=== PATIENT | male | born 1950 | race Caucasian/White ===

== ENCOUNTER 2020-09-06 06:41 | Emergency (ER) | payer OTHER, MEDICARE ==
[~2020-09-06] VITALS: Ht 175.3 cm; Wt 97.5 kg
[~2020-09-06 06:41] MED LIST: PRED20 PO; VALA500 PO
[2020-09-06] MEDS ORDERED: NOVOLOG100 UNIT/2 (07:19)
[2020-09-06] MEDS ORDERED: INSUGL100V (07:19)
== END 2020-09-06 09:05 | disposition home or self-care (01) ==
LOC: ER 06:41
DX: S39.012A Strain of muscle, fascia and tendon of lower back, initial encounter (principal); W18.39XA Other fall on same level, initial encounter; E11.9 Type 2 diabetes mellitus without complications; G47.30 Sleep apnea, unspecified; Z88.8 Allergy status to other drugs, medicaments and biological substances; Z91.030 Bee allergy status; Z79.4 Long term (current) use of insulin
CPT/HCPCS: 72100; 99283-25

== ENCOUNTER 2021-06-27 23:16 | Emergency (ER) | payer OTHER ==
[~2021-06-27] VITALS: Ht 175.3 cm; Wt 108.9 kg
[~2021-06-27 23:16] MED LIST changes: +ACET500 PO; +ARTIFICIAL TEA1 EAC6 OP; +ARTIFICIAL TEAR15 M2 OP; +CYCL10 PO; +INSUGL100V; +NOVOLOG100 UNIT/2; +Nitrostat0.4 MG SL
[2021-06-27 23:45] LABS: BASOPHILS ABSOLUTE AUTO 0.08 K/mm3 (0.00-0.23); BASOPHILS PERCENT AUTO 1 % (0-2); EOSINOPHILS PERCENT AUTO 2 % (0-6); Hematocrit 47.9 % (37.0-53.0); Hemoglobin 16.4 g/dL (13.5-17.5); IMMATURE GRAN ABSOLUTE AUTO 0.03 K/mm3 (0.00-0.10); IMMATURE GRAN PERCENT AUTO 0 % (0-1); LYMPHOCYTES ABSOLUTE AUTO 3.99 K/mm3 (0.84-5.20); LYMPHOCYTES PERCENT AUTO 40 % (21-46); MONOCYTES ABSOLUTE AUTO 0.98 K/mm3 (0.16-1.47); MONOCYTES PERCENT AUTO 10 % (4-13); Mean Corpuscular HGB 30.3 pg (26.0-34.0); Mean Corpuscular HGB Conc 34.2 g/dL (31.5-36.5); Mean Corpuscular Volume 89 fL (80-100); Mean Platelet Volume 10.3 fL (9.1-12.4); NEUTROPHILS ABSOLUTE AUTO 4.67 K/mm3 (1.96-9.15); NEUTROPHILS PERCENT AUTO 47 % (41-73); Platelet Count 299 K/mm3 (150-400); RDW Coefficient Variation 13.5 % (11.7-14.2); RDW Standard Deviation 43.5 fL (35.1-46.3); Red Blood Cell Count 5.41 M/mm3 (4.30-5.90); White Blood Cell Count 9.95 K/mm3 (4.00-11.30)
[2021-06-28 00:04] LABS: Alanine Aminotransfer (ALT/SGP 37 U/L (12-78); Albumin, Blood 3.2 g/dL (3.4-5.0); Albumin/Globulin Ratio 0.8 (0.8-1.8); Alk Phos 79 U/L (50-136); Anion Gap 9 mmol/L (6-16); Aspartate Aminotrans (AST/SGOT 24 U/L (12-37); Bilirubin, Total 0.4 mg/dL (0.1-1.0); Blood Urea Nitrogen 12 mg/dL (8-24); Bun/Creatinine Ratio 15.5 (12.0-20.0); CO2, Blood 24 mmol/L (21-32); Chloride, Blood 104 mmol/L (98-108); Creatinine, Blood 0.77 mg/dL (0.60-1.20); Ethanol (Alcohol), Blood, Med <3 mg/dL; Globulin, Blood 4.1 g/dL (2.2-4.0); Glomerular Filtration Rate >60 (60-); Glucose, Blood 266 mg/dL (70-99); Potassium, Blood 4.2 mmol/L (3.5-5.5); Sodium, Blood 137 mmol/L (136-145); Total Protein, Blood 7.3 g/dL (6.4-8.2)
[2021-06-28] MEDS ORDERED: QUET25 PO (00:10)
[2021-06-28] MEDS ORDERED: ASPI325 PO (00:10)
[2021-06-28] MEDS ORDERED: EZET10 PO (00:15)
[2021-06-28] MEDS ORDERED: JARDIANCE10 MG PO (00:16)
[2021-06-28 00:59] LABS: International Normalized Ratio 0.97; Prothrombin Time Results 10.2 Sec (9.7-11.5)
== END 2021-06-28 04:13 | disposition home or self-care (01) ==
LOC: ER 23:16
PROVIDERS: Student in an Organized Health Care Education/Training Program
DX: H11.31 Conjunctival hemorrhage, right eye (principal); R51.9 Headache, unspecified; E11.9 Type 2 diabetes mellitus without complications; Z79.4 Long term (current) use of insulin; Z88.8 Allergy status to other drugs, medicaments and biological substances
CPT/HCPCS: 36415; 70450; 70481; 80053; 82947; 85025; 85610; 85651; 85730; 86140; 93005; 93010; 99284-25; G0480; Q9967

== ENCOUNTER 2021-07-05 05:37 | Day surgery (SDC) | payer OTHER ==
[~2021-07-05] VITALS: Ht 177.8 cm; Wt 97.0 kg
[~2021-07-05 05:37] MED LIST changes: +Aspir 8181 MG PO; +EZET10 PO; +JARDIANCE10 MG PO; +QUET25 PO; +VOLTAREN ARTHRI20 GM TOP; +Viagra100 MG PO
--- NOTE | 2021-07-05 09:38 | NUR ---
PATIENT RETURNS FROM THE [facility] WITH TR BAND TO THE RIGHT RADIAL WITH 10 ML OF AIR IN THE BAND, SITE CDI, NO HEMATOMA, NO BLEEDING NOTED. PATIENT IS S/P CORONARY ANGIOGRAM. WITH NO INTERVENTION REPORTED. MEDICAL MANAGEMENT PLANNED. PATIENT IS IN A RECLINER, PLACED ON THE MONITOR. SR/ST NOTED. BLOOD SHOT RIGHT PUPIL REPORTED UNCHANGED FROM PRE- OPERATIVE ASSESSMENT. VVS. CALL LIGHT IN REACH. BREAKFAST SERVED AND PATIENT FEEDING SELF.
--- NOTE | 2021-07-05 11:15 | NUR ---
BEGAN TAKING AIR OUT OF THE TR BAND AT 1100. NO BLEEDING NOTED AT THIS TIME. CONTINUE TO MONITOR.
--- NOTE | 2021-07-05 12:00 | NUR ---
TR BAND FLAT AND REMOVED. CLOTHE DOT PLACED AND WHITE BOARD REPLACED. TEACHING DONE AND DISCHARGE INSTRUCTIONS REVIEWED. SIGNATURES OBTAINED AND COPIES GIVEN. PIV REMOVED, CATH TIP INTACT AND PRESSURE DRESSING APPLIED. PATIENT UP AND DRESSED. ALL BELONGINGS GATHERED. PATEINT WHEELED OUT IN WHEELCHAIR TO MEET WITH CEMENT CONTRACTOR. DISCHARGED HOME.
== END 2021-07-05 12:30 | disposition home or self-care (01) ==
LOC: MHTC 05:37
DX: I25.10 Atherosclerotic heart disease of native coronary artery without angina pectoris (principal); I25.82 Chronic total occlusion of coronary artery; I25.2 Old myocardial infarction; E11.69 Type 2 diabetes mellitus with other specified complication; E78.5 Hyperlipidemia, unspecified; I77.810 Thoracic aortic ectasia; G47.33 Obstructive sleep apnea (adult) (pediatric); E66.01 Morbid (severe) obesity due to excess calories; Z68.30 Body mass index [BMI] 30.0-30.9, adult; Z82.49 Family history of ischemic heart disease and other diseases of the circulatory system; Z87.891 Personal history of nicotine dependence; Z79.4 Long term (current) use of insulin; Z88.8 Allergy status to other drugs, medicaments and biological substances; Z91.030 Bee allergy status
CPT/HCPCS: 76937; 85347; 93458; 93571; 93572; 99152; 99153; A9270; C1769; C1887; C1894; J1644; J2250; J3010; J7030; J7050; Q9967

== ENCOUNTER 2022-03-30 18:53 | Emergency (ER) | payer OTHER ==
[~2022-03-30] VITALS: Ht 177.8 cm; Wt 89.8 kg
[2022-03-30 19:46] LABS: BASOPHILS ABSOLUTE AUTO 0.05 K/mm3 (0.00-0.23); BASOPHILS PERCENT AUTO 1 % (0-2); EOSINOPHILS ABSOLUTE AUTO 0.12 K/mm3 (0.00-0.68); EOSINOPHILS PERCENT AUTO 1 % (0-6); Hematocrit 48.2 % (37.0-53.0); Hemoglobin 16.4 g/dL (13.5-17.5); IMMATURE GRAN ABSOLUTE AUTO 0.02 K/mm3 (0.00-0.10); IMMATURE GRAN PERCENT AUTO 0 % (0-1); LYMPHOCYTES ABSOLUTE AUTO 3.01 K/mm3 (0.84-5.20); LYMPHOCYTES PERCENT AUTO 32 % (21-46); MONOCYTES ABSOLUTE AUTO 1.02 K/mm3 (0.16-1.47); MONOCYTES PERCENT AUTO 11 % (4-13); Mean Corpuscular HGB 30.5 pg (26.0-34.0); Mean Corpuscular Volume 90 fL (80-100); Mean Platelet Volume 10.4 fL (9.1-12.4); NEUTROPHILS ABSOLUTE AUTO 5.34 K/mm3 (1.96-9.15); NEUTROPHILS PERCENT AUTO 56 % (41-73); Platelet Count 256 K/mm3 (150-400); RDW Coefficient Variation 12.5 % (11.7-14.2); RDW Standard Deviation 41.1 fL (35.1-46.3); Red Blood Cell Count 5.38 M/mm3 (4.30-5.90); White Blood Cell Count 9.56 K/mm3 (4.00-11.30)
[2022-03-30 20:05] LABS: Albumin, Blood 3.6 g/dL (3.4-5.0); Albumin/Globulin Ratio 0.9 (0.8-1.8); Bilirubin, Total 0.4 mg/dL (0.1-1.0); Bun/Creatinine Ratio 20.1 (12.0-20.0); Calcium, Blood 9.1 mg/dL (8.5-10.1); Creatinine, Blood 0.65 mg/dL (0.60-1.20); Globulin, Blood 3.8 g/dL (2.2-4.0); Potassium, Blood 4.1 mmol/L (3.5-5.5); Total Protein, Blood 7.4 g/dL (6.4-8.2)
[2022-03-30 22:43] LABS: International Normalized Ratio 0.96; Prothrombin Time Results 10.1 Sec (9.7-11.5)
== END 2022-03-30 23:19 | disposition home or self-care (01) ==
LOC: ER 18:53
PROVIDERS: Student in an Organized Health Care Education/Training Program
DX: R07.9 Chest pain, unspecified (principal); E11.9 Type 2 diabetes mellitus without complications; I25.10 Atherosclerotic heart disease of native coronary artery without angina pectoris; Z79.4 Long term (current) use of insulin; Z79.82 Long term (current) use of aspirin; Z79.899 Other long term (current) drug therapy
CPT/HCPCS: 36415; 71046; 80053; 83690; 83880; 84484; 85025; 85610; 93005; 93010; J7030

== ENCOUNTER 2023-11-25 09:00 | Emergency (ER) | payer OTHER ==
[~2023-11-25] VITALS: Ht 177.8 cm; Wt 88.5 kg
[2023-11-25 09:30] VITALS: BP 135/99
== END 2023-11-25 10:42 | disposition home or self-care (01) ==
LOC: ER 09:00
DX: K04.7 Periapical abscess without sinus (principal); E11.9 Type 2 diabetes mellitus without complications; G25.0 Essential tremor; G47.30 Sleep apnea, unspecified; I25.10 Atherosclerotic heart disease of native coronary artery without angina pectoris; I25.2 Old myocardial infarction; Z99.89 Dependence on other enabling machines and devices; Z96.82 Presence of neurostimulator; Z88.8 Allergy status to other drugs, medicaments and biological substances; Z91.030 Bee allergy status; Z79.4 Long term (current) use of insulin; Z79.82 Long term (current) use of aspirin; Z79.84 Long term (current) use of oral hypoglycemic drugs; Z79.899 Other long term (current) drug therapy

== ENCOUNTER 2024-05-06 09:37 | Emergency (ER) | payer OTHER ==
[~2024-05-06] VITALS: Ht 167.6 cm; Wt 79.4 kg
[~2024-05-06 09:37] MED LIST changes: +AMOCLA875 PO; +OXAYDO5 M1 PO
[2024-05-06 10:08] VITALS: BP 131/98
[2024-05-06] MEDS ORDERED: HYDROmorphone HCl/Pf 1MG SYR IM ONE (10:10)
[2024-05-06] MEDS ORDERED: Percocet 5-3251 EACH PO (12:02)
== END 2024-05-06 12:12 | disposition home or self-care (01) ==
LOC: ER 09:37
DX: R07.81 Pleurodynia (principal); E11.9 Type 2 diabetes mellitus without complications; G47.30 Sleep apnea, unspecified; I25.2 Old myocardial infarction; Z79.82 Long term (current) use of aspirin; Z79.899 Other long term (current) drug therapy; Z79.4 Long term (current) use of insulin; Z91.030 Bee allergy status; Z88.8 Allergy status to other drugs, medicaments and biological substances
CPT/HCPCS: 71046; 96372; 99283-25; J1170; J1171

== ENCOUNTER 2024-05-23 12:47 | Emergency (ER) | payer OTHER ==
[~2024-05-23] VITALS: Ht 177.8 cm; Wt 79.4 kg
[~2024-05-23 12:47] MED LIST changes: +Percocet 5-3251 EACH PO
[2024-05-23 13:32] LABS: Hematocrit 48.5 % (37.0-53.0); Hemoglobin 16.3 g/dL (13.5-17.5); Mean Corpuscular HGB 30.2 pg (26.0-34.0); Mean Corpuscular HGB Conc 33.6 g/dL (31.5-36.5); Mean Corpuscular Volume 90 fL (80-100); Mean Platelet Volume 10.8 fL (9.1-12.4); Platelet Count 311 K/mm3 (150-400); RDW Coefficient Variation 13.7 % (11.7-14.2); RDW Standard Deviation 44.9 fL (35.1-46.3); White Blood Cell Count 11.53 K/mm3 (4.00-11.30)
[2024-05-23 14:01] LABS: Albumin, Blood 3.9 g/dL (3.4-5.0); Bilirubin, Total 1.3 mg/dL (0.1-1.0); Bun/Creatinine Ratio 10.4 (12.0-20.0); Calcium, Blood 9.6 mg/dL (8.5-10.1); Creatinine, Blood 0.77 mg/dL (0.60-1.20); Total Protein, Blood 7.9 g/dL (6.4-8.2)
[2024-05-23 14:37] LABS: Influenza A, PCR NEGATIVE (NEGATIVE); Influenza B, PCR NEGATIVE (NEGATIVE); Resp Syncytial Virus, PCR NEGATIVE (NEGATIVE)
[2024-05-23 14:39] LABS: BAND PERCENT MAN 3 % (0-8); BASOPHILS ABSOLUTE MAN 0.11 K/mm3 (0.00-0.23); BASOPHILS PERCENT MAN 1 % (0-2); EOSINOPHILS PERCENT MAN 0 % (0-6); LYMPHOCYTES ABSOLUTE MAN 1.84 K/mm3 (0.84-5.20); LYMPHOCYTES PERCENT MAN 16 % (21-46); MONOCYTES ABSOLUTE MAN 1.38 K/mm3 (0.16-1.47); MONOCYTES PERCENT MAN 12 % (4-13); NEUTROPHILS ABSOLUTE MAN 8.18 K/mm3 (1.96-9.15); SEG NEUTROPHILS PERCENT MAN 68 % (41-73); TOTAL CELLS COUNTED 100
[2024-05-23 16:15] VITALS: BP 133/92
[2024-05-23 20:41] LABS: SARS-Cov-2 (COVID-19) PCR, MMC POSITIVE (NEGATIVE)
== END 2024-05-23 16:21 | disposition home or self-care (01) ==
LOC: ER 12:47
PROVIDERS: Emergency Medicine
DX: R53.1 Weakness (principal); R19.7 Diarrhea, unspecified; E11.9 Type 2 diabetes mellitus without complications; G47.30 Sleep apnea, unspecified; Z79.82 Long term (current) use of aspirin; Z79.899 Other long term (current) drug therapy; Z88.8 Allergy status to other drugs, medicaments and biological substances; Z91.030 Bee allergy status
CPT/HCPCS: 0241U; 71045; 80053; 84484; 85025; 99285-25

== ENCOUNTER 2024-05-25 08:47 | Emergency (ER) | payer OTHER ==
[~2024-05-25] VITALS: Ht 177.8 cm; Wt 79.8 kg
[2024-05-25 09:30] VITALS: BP 129/84
== END 2024-05-25 09:37 | disposition home or self-care (01) ==
LOC: ER 08:47
DX: U07.1 COVID-19 (principal); S10.96XA Insect bite of unspecified part of neck, initial encounter; E11.9 Type 2 diabetes mellitus without complications; I25.2 Old myocardial infarction; Z79.82 Long term (current) use of aspirin; Z79.899 Other long term (current) drug therapy; Z79.4 Long term (current) use of insulin; Z91.030 Bee allergy status; Z88.8 Allergy status to other drugs, medicaments and biological substances
CPT/HCPCS: 99282

== ENCOUNTER 2024-08-04 08:53 | Emergency (ER) | payer OTHER ==
[~2024-08-04] VITALS: Ht 175.3 cm; Wt 104.3 kg
[2024-08-04 09:20] VITALS: BP 148/80
[2024-08-04] MEDS ORDERED: HYDROcodone 5-APAP 325 TAB PO ONE (10:10)
== END 2024-08-04 10:30 | disposition home or self-care (01) ==
LOC: ER 08:53
DX: S82.62XA Displaced fracture of lateral malleolus of left fibula, initial encounter for closed fracture (principal); W01.0XXA Fall on same level from slipping, tripping and stumbling without subsequent striking against object, initial encounter
CPT/HCPCS: 73610; 99283-25; A9270

== ENCOUNTER 2024-09-10 09:25 | Emergency (ER) | payer OTHER ==
[~2024-09-10] VITALS: Ht 175.3 cm; Wt 81.7 kg
[2024-09-10] MEDS ORDERED: LORazepam 2 MG/ML 1ML Injection IV ONE (09:40)
[2024-09-10 09:53] LABS: BASOPHILS ABSOLUTE AUTO 0.05 K/mm3 (0.00-0.23); BASOPHILS PERCENT AUTO 0 % (0-2); EOSINOPHILS ABSOLUTE AUTO 0.11 K/mm3 (0.00-0.68); EOSINOPHILS PERCENT AUTO 1 % (0-6); Hematocrit 40.5 % (37.0-53.0); Hemoglobin 13.9 g/dL (13.5-17.5); IMMATURE GRAN ABSOLUTE AUTO 0.03 K/mm3 (0.00-0.10); IMMATURE GRAN PERCENT AUTO 0 % (0-1); LYMPHOCYTES ABSOLUTE AUTO 2.99 K/mm3 (0.84-5.20); LYMPHOCYTES PERCENT AUTO 26 % (21-46); MONOCYTES ABSOLUTE AUTO 1.18 K/mm3 (0.16-1.47); MONOCYTES PERCENT AUTO 10 % (4-13); Mean Corpuscular HGB 30.7 pg (26.0-34.0); Mean Corpuscular HGB Conc 34.3 g/dL (31.5-36.5); Mean Corpuscular Volume 89 fL (80-100); Mean Platelet Volume 10.5 fL (9.1-12.4); NEUTROPHILS ABSOLUTE AUTO 7.02 K/mm3 (1.96-9.15); NEUTROPHILS PERCENT AUTO 62 % (41-73); Platelet Count 259 K/mm3 (150-400); RDW Standard Deviation 46.4 fL (35.1-46.3); Red Blood Cell Count 4.53 M/mm3 (4.30-5.90); White Blood Cell Count 11.38 K/mm3 (4.00-11.30)
[2024-09-10 10:20] LABS: Albumin, Blood 2.7 g/dL (3.4-5.0); Albumin/Globulin Ratio 1.1 (0.8-1.8); Bilirubin, Total 0.5 mg/dL (0.1-1.0); Bun/Creatinine Ratio 38.5 (12.0-20.0); Calcium, Blood 7.2 mg/dL (8.5-10.1); Creatinine, Blood 0.47 mg/dL (0.60-1.20); Globulin, Blood 2.4 g/dL (2.2-4.0); Potassium, Blood 2.8 mmol/L (3.5-5.5); Total Protein, Blood 5.1 g/dL (6.4-8.2)
[2024-09-10] MEDS ORDERED: Potassium Chloride 20 MEQ TabCR PO ONE (10:35)
[2024-09-10 11:43] LABS: CORONAVIRUS COVID-19 AG Negative (NEGATIVE); INFLUENZA A AG Negative (NEGATIVE); INFLUENZA B AG Negative (NEGATIVE)
[2024-09-10] MEDS ORDERED: K-TAB ER20 ME1 PO (12:22)
[2024-09-10 12:35] VITALS: BP 160/118
== END 2024-09-10 12:50 | disposition home or self-care (01) ==
LOC: ER 09:25
PROVIDERS: Emergency Medicine
DX: E87.6 Hypokalemia (principal); R19.7 Diarrhea, unspecified; E11.9 Type 2 diabetes mellitus without complications; I25.2 Old myocardial infarction; G47.30 Sleep apnea, unspecified; Z96.82 Presence of neurostimulator; Z91.030 Bee allergy status; Z88.1 Allergy status to other antibiotic agents; Z88.8 Allergy status to other drugs, medicaments and biological substances; Z79.84 Long term (current) use of oral hypoglycemic drugs; Z79.1 Long term (current) use of non-steroidal anti-inflammatories (NSAID); Z79.4 Long term (current) use of insulin; Z79.82 Long term (current) use of aspirin; Z79.899 Other long term (current) drug therapy
CPT/HCPCS: 71045; 80053; 85025; 87428-QW; 93005; 93010; 96374; 99285-25; A9270; J2060

== ENCOUNTER 2025-01-23 14:31 | Emergency (ER) | payer OTHER ==
[~2025-01-23] VITALS: Ht 177.8 cm; Wt 83.0 kg
[~2025-01-23 14:31] MED LIST changes: +K-TAB ER20 ME1 PO
[2025-01-23 15:00] VITALS: BP 133/85
[2025-01-23 15:15] LABS: BASOPHILS ABSOLUTE AUTO 0.08 K/mm3 (0.00-0.23); BASOPHILS PERCENT AUTO 1 % (0-2); EOSINOPHILS ABSOLUTE AUTO 0.20 K/mm3 (0.00-0.68); EOSINOPHILS PERCENT AUTO 1 % (0-6); Hematocrit 49.8 % (37.0-53.0); Hemoglobin 17.2 g/dL (13.5-17.5); IMMATURE GRAN ABSOLUTE AUTO 0.06 K/mm3 (0.00-0.10); IMMATURE GRAN PERCENT AUTO 0 % (0-1); LYMPHOCYTES ABSOLUTE AUTO 4.33 K/mm3 (0.84-5.20); LYMPHOCYTES PERCENT AUTO 30 % (21-46); MONOCYTES ABSOLUTE AUTO 1.68 K/mm3 (0.16-1.47); MONOCYTES PERCENT AUTO 12 % (4-13); Mean Corpuscular HGB Conc 34.5 g/dL (31.5-36.5); Mean Corpuscular Volume 89 fL (80-100); NEUTROPHILS ABSOLUTE AUTO 7.97 K/mm3 (1.96-9.15); NEUTROPHILS PERCENT AUTO 56 % (41-73); NRBC ABSOLUTE 0.00 K/mm3 (0.00-0.02); NRBC Auto 0.0 /100 WBC (0.0-0.2); Platelet Count 276 K/mm3 (150-400); RDW Coefficient Variation 12.9 % (11.7-14.2); RDW Standard Deviation 42.4 fL (35.1-46.3)
[2025-01-23 15:55] LABS: Influenza A, PCR NEGATIVE (NEGATIVE); Influenza B, PCR NEGATIVE (NEGATIVE); Resp Syncytial Virus, PCR NEGATIVE (NEGATIVE); SARS-Cov-2 (COVID-19) PCR, MMC NEGATIVE (NEGATIVE)
== END 2025-01-23 18:48 | disposition home or self-care (01) ==
LOC: ER 14:31
PROVIDERS: Student in an Organized Health Care Education/Training Program
DX: I26.99 Other pulmonary embolism without acute cor pulmonale (principal); J44.9 Chronic obstructive pulmonary disease, unspecified; Z53.29 Procedure and treatment not carried out because of patient's decision for other reasons; E11.8 Type 2 diabetes mellitus with unspecified complications; Z79.01 Long term (current) use of anticoagulants
CPT/HCPCS: 71046; 71260; 83880; 84484; 85025; 85379; 87637; 93005; 93010; 96374-59; 99285-25; J2919; Q9967